=== PATIENT | female | born 1955 | race Caucasian/White ===

== ENCOUNTER → 2022-04-27 09:06 | Outpatient (CLI) | payer OTHER, SELFPAY ==
[2022-04-27 10:32] LABS: COVID19 -Nasal RAPID Negative (Negative)
== END ==
PROVIDERS: PCP Physician Assistant; Visit Provider Surgery
DX: Z20.822 Contact with and (suspected) exposure to COVID-19 (principal); Z01.812 Encounter for preprocedural laboratory examination
CPT/HCPCS: 87635; C9803

== ENCOUNTER 2022-04-28 12:12 | Day surgery (SDC) | payer OTHER, SELFPAY ==
[2022-04-28] VITALS (7 sets, daily range): BP systolic 158–181; BP diastolic 89–96; PULSE 51–84; RESP 11–16; TEMP 36.2; O2SAT 95–99; BMI 31.5
--- NOTE | 2022-04-28 | PATH_ITS ---
[facility] Accession Number: [id number] . 01 Material submitted: . PART A: body - 35 CM RANDOM BIOPSIES PART B: body - 33 CM RANDOM BIOPSIES PART C: body - 31 CM RANDOM BIOPSIES . 01 Diagnosis: A. Esophagus, 35 cm, Biopsies: Proximal gastric-type mucosa with no diagnostic abnormality. Negative for intestinal metaplasia. Negative for dysplasia and malignancy. . B. Esophagus, 33 cm, Biopsy: Squamocolumnar junctional mucosa with focal specialized intestinal metaplasia; please see comment. Focal specialized intestinal metaplasia highlighted on alcian blue stain. Negative for dysplasia or malignancy. . C. Esophagus, 31 cm, Biopsies: Squamocolumnar junctional mucosa with intestinal metaplasia; please see comment. Negative for dysplasia or malignancy. [facility] 05/03/2022 1449 Local . 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 . 01 Electronically signed: . Seth Lino MD, PhD, Pathologist NPI- [id number] . 01 Gross description: . Part A: 35 CM RANDOM BIOPSIES: Received in formalin are 3 fragment(s) of lu, soft tissue measuring 0.3 x 0.2 x 0.1 cm to 0.3 x 0.1 x 0.1 cm submitted entirely in 1 cassette(s) Part B: 33 CM RANDOM BIOPSIES: Received in formalin are 4 fragment(s) of lu, soft tissue measuring 0.3 x 0.3 x 0.2 cm to 0.1 x 0.1 x 0.1 cm submitted entirely in 1 cassette(s) Part C: 31 CM RANDOM BIOPSIES: Received in formalin are 3 fragment(s) of ul, soft tissue measuring 0.2 x 0.1 x 0.1 cm to 0.2 x 0.1 x 0.1 cm submitted entirely in 1 cassette(s) /CPE 04/29/2022 0943 Local . 01 Microscopic: . B. An AB/PAS stain is performed to evaluate for specialized intestinal metaplasia, and highlights a focus of goblet cells. A control stain shows appropriate reactivity. . 01 Pathologist provided ICD-10: K21.9, K22.70 . 01 CPT . 820745, 503471, 375727, 074546 Specimen Comment: A courtesy copy of this report has been sent to [phone] Performed at: [address] [facility] [address], [place], [place] [id number] MD Ryan Manrique MD Phone: [phone]
[2022-04-28] MEDS: SODIUM CHLORIDE 0.9% 1,000 ML 84 ML IV (13:41)
--- NOTE | 2022-04-28 14:13 | PM.HP.1 ---
History of Present Illness History of Present Illness Date Patient Seen: 04/28/22 Chief complaint: EGD W/POSS BX Narrative: History of GE reflux poorly responsive to medication. Rule out Gary's esophagus or erosive esophagitis Patient History Family & Social History Social History: household members spouse Tobacco & Substance use: Smoking Status Never smoker alcohol intake never Substance Use Type does not use Meds Home Medications and Allergies Home Medications Medication Instructions Recorded Confirmed Type amlodipine 2.5 mg tablet 2.5 mg PO DAILY 04/28/22 04/28/22 History aspirin 81 mg PO DAILY 04/28/22 04/28/22 History chlorthalidone 25 mg tablet 25 mg PO DAILY 04/28/22 04/28/22 History losartan 50 mg tablet 50 mg PO DAILY 04/28/22 04/28/22 History pantoprazole 40 mg tablet,delayed 40 mg PO DAILY 04/28/22 04/28/22 History release sucralfate 1 gram tablet 1 g PO DAILY 04/28/22 04/28/22 History Allergies Allergy/AdvReac Type Severity Reaction Status Date / Time Penicillins Allergy Rash Verified 04/28/22 13:26 Exam Vital Signs (past 8 hours): - 04/28/22 13:33 Temperature 97.1 F L Pulse Rate 84 Respiratory Rate 16 Blood Pressure 179/96 H Pulse Oximetry 98 Oxygen Delivery Method Room Air Oxygen Flow Rate 0 Oxygen Delivery Method Room Air Oxygen Flow Rate 0 Narrative Exam Narrative: Oropharynx free of lesions Chest clear to auscultation percussion Cardiac exam reveals no S3 or murmur Assessment & Plan Assessment & Plan narrative: GE reflux poorly responsive medications rule out Gary's or erosive esophagitis. Risks benefits and alternatives have been explained. Time Spent With Patient Critical Care time: I spent a total of [] minutes of critical care time on this patient's care today; this time is exclusive of procedural time.
--- NOTE | 2022-04-28 14:16 | P.OP.EGD_ITS ---
Operative Date/Time/Diagnoses Date of procedure: 04/28/22 Pre-op diagnosis: See indication Procedure & Clinicians Study performed: EGD Indications: Poorly responsive heartburn symptoms Surgeon: Amilcar Restrepo Procedure Notes Procedure in detail: After informed consent was obtained the patient was placed in left lateral decubitus position. The video upper scope placed into the oropharynx and with the patient's help swelled into the esophagus. The esophagus stomach and duodenum were carefully examined. On withdrawal retroflexed view the GE junction was performed. The scope was removed. The patient tolerated procedure well. Blood loss none Complications none Sedation propofol Findings 1. Abnormal mucosa in the distal esophagus from 31 cm to 36 cm at the upper level of the G folds. This would be [place] classification C3M5. Biopsies were taken in 4 quadrants every 2 cm and labeled 35, 33, and 31. 2. Normal stomach 3. Normal duodenal bulb and sweep I would suggest that Ms. Erickson return to the clinic to discuss these findings in person and to manage her medication doses.
== END 2022-04-28 15:55 | disposition home or self-care (01) ==
PROVIDERS: Referring Provider Internal Medicine Gastroenterology; Visit Provider Internal Medicine Gastroenterology
PROC: 0DJ08ZZ Inspection of Upper Intestinal Tract, Via Natural or Artificial Opening Endoscopic (ICD-10-PCS; CPT 43235; principal; 2022-04-28 14:30)
DX: K21.9 Gastro-esophageal reflux disease without esophagitis (principal); K22.70 Barrett's esophagus without dysplasia
CPT/HCPCS: 43239; J2704; J3010

== ENCOUNTER → 2024-12-27 11:06 | Outpatient (CLI) | payer MEDICARE, SELFPAY ==
--- NOTE | 2024-12-27 11:08 | DI.MRI.S_ITS ---
PROCEDURE: MR SHOULDER LT WO CON INDICATIONS: LEFT SHOULDER PAIN TECHNIQUE: Noncontrast oblique coronal T2 fast spin echo with fat saturation, oblique sagittal T1 spin echo and T2 fast spin echo with fat saturation, axial T1 spin echo and T2 fast spin echo with fat saturation through the shoulder. COMPARISON: None. FINDINGS: Image quality: Excellent. Rotator cuff: Partial tear and tendinopathy of the mid and distal supraspinatus tendon with near complete tear distally predominantly of the bursal surface without significant myotendinous retraction. Tendinopathy and suspected partial tear of the [id number] subscapularis. Tendinopathy of the distal infraspinatus. Mild subacromial/subdeltoid bursal fluid. Teres minor within normal limits. Bones and bursae: [id number] degenerative changes of the acromioclavicular joint with joint space narrowing and subchondral edema. Type 2 laterally downsloping acromion. No MR evidence of fracture line or dislocation. Degenerative changes of the glenohumeral joint with subchondral edema. 1 cm subchondral cyst in the posterior aspect of the humeral head less likely related to remote Hill-Sachs deformity. Capsule and soft tissues: Degenerative changes of the glenoid labrum with diffuse heterogeneous signal most notably superiorly suspected SLAP tear , acute versus chronic. The long head of the biceps tendon is located within the biceps groove with increased T2 weighted signal and thickening of the mid and distal biceps tendon to biceps anchor tendinopathy versus partial tear. 1.2 cm paralabral cyst or ganglion cyst anterior to the middle glenohumeral ligament. Mild glenohumeral joint fluid mid likely a physiologic amount. IMPRESSION: Rotator cuff tear is as discussed above. Degenerative changes of the labrum with suspected SLAP tear as discussed above. Tendinopathy versus partial tear biceps tendon. Other findings as above. Continued follow-up is needed. Dictated by: Dominic Aguilar M.D. on 12/31/2024 at 8:23 Approved by: Dominic Aguilar M.D. on 12/31/2024 at 8:54
== END ==
LOC: MRI 11:08
PROVIDERS: PCP Internal Medicine; Referring Provider Orthopaedic Surgery; Visit Provider Orthopaedic Surgery
DX: M75.112 Incomplete rotator cuff tear or rupture of left shoulder, not specified as traumatic (principal); M25.512 Pain in left shoulder; M25.812 Other specified joint disorders, left shoulder
CPT/HCPCS: 73221